=== PATIENT | male | born 1995 | race Caucasian/White ===

== ENCOUNTER 2018-08-09 19:37 | Emergency (ER) | payer BC, MEDICAID, OTHER, SELFPAY ==
[~2018-08-09] VITALS: Ht 167.6 cm; Wt 70.6 kg
[2018-08-09 19:42] VITALS: BP 109/73
[2018-08-09] MEDS ORDERED: HYDROcodone/APAP 5/325 TABLET ONE (20:46)
[2018-08-09] MEDS ORDERED: HYDROcodone/APAP 5/325 TABLET PO ONE (21:00)
== END 2018-08-09 21:09 | disposition home or self-care (01) ==
LOC: ED 20:45
DX: S01.01XD Laceration without foreign body of scalp, subsequent encounter (principal); V19.9XXD Pedal cyclist (driver) (passenger) injured in unspecified traffic accident, subsequent encounter
CPT/HCPCS: 99283